=== PATIENT | female | born 1940 | race Caucasian/White ===

== ENCOUNTER 2019-02-13 14:26 | Outpatient (REF) | payer OTHER, SELFPAY ==
[2019-02-13 15:30] LABS: ALT 22 U/L (12-78); AST 19 U/L (15-37); Albumin 3.5 g/dL (3.4-5.0); Alkaline Phosphatase 70 U/L (46-116); Anion Gap 11.1 mmol/L (3-11); BUN 19 mg/dL (7-18); Bilirubin, Total 0.4 mg/dL (0.2-1.0); CO2 23.9 mmol/L (21.0-32.0); CREATININE 0.58 mg/dL (0.55-1.02); Calcium 9.4 mg/dL (8.5-10.1); Chloride 103 mmol/L (98-107); Glucose 88 mg/dL (70-100); Potassium 3.8 mmol/L (3.5-5.1); Sodium 138 mmol/L (136-145); Total Protein 6.1 g/dL (6.4-8.2)
[2019-02-13 15:43] LABS: Abs Immature Grans 0.01 k/cumm (0.0-0.09); Absolute Basophil Count 0.03 k/cumm (0.0-0.2); Absolute Lymphocyte Count 0.71 k/cumm (1.2-3.4); Absolute Monocyte Count 0.69 k/cumm (0.11-0.7); Absolute Neutrophil Count 4.31 k/cumm (1.2-6.7); Basophils % 0.5; Eosinophils % 1.7; HCT 27.7 % (36.0-46.0); HGB 7.2 g/dL (12.0-15.5); Immature Grans % 0.2; Lymphocytes % 12.1; Mean Corpuscular Hemoglobin 18.1 pg (27.0-33.0); Mean Corpuscular Volume 69.6 fL (80-95); Mean Platelet Volume 10.8 fL (8.0-11.0); Monocytes % 11.8; Neutrophils % 73.7; Platelet Count 355 x1000/uL (130-400); RBC 3.98 m/cumm (4.00-5.20); RBC Distribution Width 22.7 % (11.7-14.6); White Blood Cell Count 5.85 k/cumm (4.4-10.8)
[2019-02-13 17:46] LABS: Anisocytosis 3+; Diff Comment RBC Morph Reviewed; Hypochromasia 3+; Microcytosis 3+
== END 2019-02-13 14:46 ==
LOC: NCHCN 14:26
PROVIDERS: PCP Family Medicine; Visit Provider Family Medicine
DX: D64.9 Anemia, unspecified (principal)
CPT/HCPCS: 80053; 85025

== ENCOUNTER 2019-04-09 15:19 | Outpatient (REF) | payer OTHER, SELFPAY ==
[2019-04-09 21:06] LABS: Abs Immature Grans 0.02 k/cumm (0.0-0.09); Absolute Basophil Count 0.04 k/cumm (0.0-0.2); Absolute Eosinophil Count 0.14 k/cumm (0.0-0.7); Absolute Neutrophil Count 5.87 k/cumm (1.2-6.7); Basophils % 0.5; Eosinophils % 1.7; HCT 31.3 % (36.0-46.0); HGB 8.3 g/dL (12.0-15.5); Immature Grans % 0.2; Lymphocytes % 18.4; Mean Corp. HGB Concentration 26.5 g/dL (32.0-36.0); Mean Corpuscular Hemoglobin 19.1 pg (27.0-33.0); Mean Corpuscular Volume 72.1 fL (80-95); Mean Platelet Volume 10.8 fL (8.0-11.0); Monocytes % 7.3; Neutrophils % 71.9; Platelet Count 411 x1000/uL (130-400); RBC 4.34 m/cumm (4.00-5.20); RBC Distribution Width 21.6 % (11.7-14.6); White Blood Cell Count 8.17 k/cumm (4.4-10.8)
[2019-04-09 21:45] LABS: Ferritin 3 ng/mL (8-388)
[2019-04-09 22:31] LABS: Diff Comment RBC Morph Reviewed
[2019-04-09 22:32] LABS: Anisocytosis 3+; Hypochromasia 2+
== END 2019-04-09 15:39 ==
LOC: NCHCN 15:19
PROVIDERS: PCP Family Medicine; Visit Provider Internal Medicine
DX: D50.9 Iron deficiency anemia, unspecified (principal)
CPT/HCPCS: 82728; 85025

== ENCOUNTER 2019-05-13 22:09 | Outpatient (REF) | payer OTHER, SELFPAY ==
[2019-05-13 21:41] LABS: HCT 33.2 % (36.0-46.0); HGB 9.1 g/dL (12.0-15.5); Mean Corp. HGB Concentration 27.4 g/dL (32.0-36.0); Mean Corpuscular Hemoglobin 20.9 pg (27.0-33.0); Mean Corpuscular Volume 76.1 fL (80-95); Mean Platelet Volume 10.6 fL (8.0-11.0); Platelet Count 379 x1000/uL (130-400); RBC 4.36 m/cumm (4.00-5.20); RBC Distribution Width 22.4 % (11.7-14.6); White Blood Cell Count 6.11 k/cumm (4.4-10.8)
== END 2019-05-13 22:29 ==
LOC: NCHCN 22:09
PROVIDERS: PCP Family Medicine; Visit Provider Family Medicine
DX: D50.9 Iron deficiency anemia, unspecified (principal)
CPT/HCPCS: 85027

== ENCOUNTER 2019-10-09 18:54 | Outpatient (REF) | payer OTHER, SELFPAY ==
[2019-10-09 22:49] LABS: HCT 39.1 % (36.0-46.0); HGB 11.9 g/dL (12.0-15.5); Mean Corp. HGB Concentration 30.4 g/dL (32.0-36.0); Mean Corpuscular Hemoglobin 26.3 pg (27.0-33.0); Mean Corpuscular Volume 86.5 fL (80-95); Mean Platelet Volume 10.7 fL (8.0-11.0); Platelet Count 509 x1000/uL (130-400); RBC 4.52 m/cumm (4.00-5.20); RBC Distribution Width 15.7 % (11.7-14.6); White Blood Cell Count 9.27 k/cumm (4.4-10.8)
[2019-10-09 23:18] LABS: Ferritin 7 ng/mL (8-252)
== END 2019-10-09 19:14 ==
LOC: NCHCN 18:54
PROVIDERS: PCP Family Medicine; Visit Provider Nurse Practitioner Community Health
DX: Z86.2 Personal history of diseases of the blood and blood-forming organs and certain disorders involving the immune mechanism (principal)
CPT/HCPCS: 85027; 82728

== ENCOUNTER 2023-11-29 08:19 | Outpatient (REF) | payer MEDICARE, SELFPAY ==
[2023-11-30 21:04] LABS: Iron 142 ug/dL (50-170)
[2023-11-30 21:51] LABS: ALT 26 U/L (14-59); AST 30 U/L (15-37); Albumin 3.8 g/dL (3.4-5.0); Alkaline Phosphatase 68 U/L (46-116); Anion Gap 9.6 mmol/L (3-11); BUN 13 mg/dL (7-18); Bilirubin, Total 0.8 mg/dL (0.2-1.0); CO2 27.4 mmol/L (21.0-32.0); CREATININE 0.7 mg/dL (0.55-1.02); Calcium 10.1 mg/dL (8.5-10.1); Chloride 107 mmol/L (98-107); Estimated GFR 86.83 (mL/min/1.73m2); FREE T4 1.08 ng/dL (0.76-1.46); Ferritin 41 ng/mL (8-252); Glucose 90 mg/dL (74-106); Potassium 3.8 mmol/L (3.5-5.1); Sodium 144 mmol/L (136-145); TSH 1.37 uIU/Ml (0.36-3.74); Total Protein 6.9 g/dL (6.4-8.2)
[2023-11-30 22:23] LABS: T3,Free 3.3 pg/mL (2.8-5.3)
[2023-11-30 22:46] LABS: Calculated LDL 120 mg/dL (<100); Cholesterol 232 mg/dL (<200); HDL Cholesterol 101 mg/dL (40-60); Triglyceride 56 mg/dL (<150)
== END 2023-11-29 08:20 | disposition home or self-care (01) ==
LOC: NCHCN 08:19
PROVIDERS: PCP Family Medicine; Visit Provider Naturopath
DX: Z13.220 Encounter for screening for lipoid disorders (principal); Z13.0 Encounter for screening for diseases of the blood and blood-forming organs and certain disorders involving the immune mechanism; Z13.29 Encounter for screening for other suspected endocrine disorder; K59.00 Constipation, unspecified
CPT/HCPCS: 80053; 80061; 82728; 83540; 84439; 84443; 84481; 85025

== ENCOUNTER 2023-12-01 15:33 | Outpatient (REF) | payer MEDICARE, SELFPAY ==
[2023-12-01 21:10] LABS: Abs Immature Grans 0.01 10^3/uL (0.0-0.06); Absolute Basophil Count 0.03 10^3/uL (0.0-0.2); Absolute Eosinophil Count 0.06 10^3/uL (0.0-0.7); Absolute Lymphocyte Count 1.49 10^3/uL (1.2-3.4); Absolute Monocyte Count 0.62 10^3/uL (0.1-0.8); Absolute Neutrophil Count 4.33 10^3/uL (1.2-6.7); Basophils % 0.5; Eosinophils % 0.9; HGB 15.4 g/dL (11.2-15.7); Immature Grans % 0.2; Lymphocytes % 22.8; MCH 31.8 pg (27.0-33.0); MCHC 33.5 % (32.0-36.0); MCV 95 fL (80-95); MPV 10.6 fL (8.0-11.0); Monocytes % 9.5; Neutrophils % 66.1; Platelet Count 228 10^3/uL (130-400); RBC 4.85 10^6/uL (3.93-5.22); RDW 14.3 % (11.7-14.6); RDW-SD 49.5 fL; WBC 6.54 10^3/uL (4.4-10.8)
== END 2023-12-01 15:34 | disposition home or self-care (01) ==
LOC: NCHCN 15:33
PROVIDERS: PCP Family Medicine; Visit Provider Family Medicine
DX: Z86.2 Personal history of diseases of the blood and blood-forming organs and certain disorders involving the immune mechanism (principal)
CPT/HCPCS: 85025